=== PATIENT | female | born 1960 | race Caucasian/White ===

== ENCOUNTER 2018-05-04 23:13 | Observation (INO) | payer OTHER ==
[~2018-05-04] VITALS: Ht 162.6 cm; Wt 90.2 kg
[~2018-05-04 23:13] MED LIST: BACTRIM,SEPT1 TABLET PO; CIPRO500 MG PO; COZAAR100 MG PO; GLIMEPIRIDE2 MG PO; GLUCOPHAGE1000 MG PO; HYDROCODON-ACE1 EAC7 PO; KEFLEX500 MG PO; LEVEMIR FL100 UNITS/ SC; MELOXICAM7.5 MG PO; MONISTAT 745 GM VG; NORCO 5/3251 TABLET PO; PYRIDIUM200 MG PO; SIMVASTATIN20 MG PO
[2018-05-05 01:46] LABS: BASOPHIL (%) 0.5 % (0-1); BASOPHIL COUNT 0.1 K/uL (0-0.1); EOSINOPHIL (%) 2.5 % (0-5); EOSINOPHIL COUNT 0.3 K/uL (0-0.3); HEMATOCRIT 34.3 % (36.0-46.0); IMMATURE GRANULOCYTE (%) 0.9 % (0.0-0.7); LYMPHOCYTE COUNT 2.7 K/uL (1.0-2.8); MCV 82.9 FL (83-99); MONOCYTE (%) 4.8 % (3-12); MONOCYTE COUNT 0.5 K/uL (0-0.8); NEUTROPHIL (%) 66.3 % (45-76); NEUTROPHIL COUNT 7.1 K/uL (1.8-6.4); PLATELET COUNT 263 K/uL (156-360); RBC DIS.WIDTH-CV 12.1 % (11.8-14.6); RBC DIS.WIDTH-SD 36.6 % (39-53); RED BLOOD COUNT 4.14 M/uL (3.80-5.20); WHITE BLOOD COUNT 10.7 K/uL (4.1-10.2)
[2018-05-05 01:56] LABS: CHLORIDE 106 mEq/L (99-109); POTASSIUM 4.4 mEq/L (3.7-5.4); SODIUM 142 mEq/L (136-147)
[2018-05-05 01:57] LABS: GLUCOSE 224 mg/dL (70-99)
[2018-05-05 02:01] LABS: CREATININE 1.2 mg/dL (0.6-1.3); GFR ESTIMATE (CALCULATED) 49 mL/min/
[2018-05-05 02:02] LABS: UREA NITROGEN (BUN) 19 mg/dL (9-23)
[2018-05-05 02:07] LABS: TROP-I INTERPRETATION NEGATIVE; TROPONIN-I 0.09 ng/mL (0.0-0.30)
[2018-05-05] MEDS ORDERED: TYLENOL ARTHRI650 MG PO (07:14)
[2018-05-05] MEDS ORDERED: ADVIL200 MG PO (07:14)
[2018-05-05 07:35] LABS: ALBUMIN 3.8 g/dL (3.2-4.8)
[2018-05-05 07:37] LABS: TOTAL PROTEIN 6.5 g/dL (6.4-8.3)
[2018-05-05 07:39] LABS: TOTAL BILIRUBIN 0.4 mg/dL (0.0-1.0)
[2018-05-05 07:40] LABS: ALKALINE PHOSPHATASE 88 IU/L (3-129)
[2018-05-05 07:43] LABS: ALT (GPT) 13 IU/L (3-49); AST (GOT) 11 IU/L (2-34); DIRECT BILIRUBIN 0.1 mg/dL (0.0-0.3)
[2018-05-05 08:17] VITALS: BP 185/79
[2018-05-05 08:46] LABS: TROP-I INTERPRETATION NEGATIVE; TROPONIN-I 0.28 ng/mL (0.0-0.30)
[2018-05-05 11:50] VITALS: BP 177/88
[2018-05-05 11:51] LABS: TROP-I INTERPRETATION NEGATIVE; TROPONIN-I 0.28 ng/mL (0.0-0.30)
[2018-05-05] MEDS ORDERED: ASPIR 8181 M1 PO (13:26)
[2018-05-05] MEDS ORDERED: METOPROLOL SUCC25 MG PO (13:26)
[2018-05-05] MEDS ORDERED: ATORVASTATIN CA40 MG PO (13:27)
== END 2018-05-05 15:23 | disposition home or self-care (01) ==
LOC: EME 23:13 → EDOF 05-05 04:45 → ENRESERV 05-05 04:53 → 4SOUTH 05-05 07:20
PROVIDERS: Emergency Medicine; Hospitalist
DX: R07.89 Other chest pain (principal); I10 Essential (primary) hypertension; E78.5 Hyperlipidemia, unspecified; E11.9 Type 2 diabetes mellitus without complications; R91.8 Other nonspecific abnormal finding of lung field; R79.1 Abnormal coagulation profile; R94.31 Abnormal electrocardiogram [ECG] [EKG]; E66.01 Morbid (severe) obesity due to excess calories; Z68.34 Body mass index [BMI] 34.0-34.9, adult; Z79.84 Long term (current) use of oral hypoglycemic drugs
CPT/HCPCS: 71045; 71275; 80048; 80076; 82948; 84484; 85025; 85379; 93005; 99281; 99285; G0378; J1650